=== PATIENT | male | born 1975 | race Caucasian/White ===

== ENCOUNTER → 2019-08-12 | Outpatient (CLI) | payer BC, OTHER ==
[~2019-08-12] MED LIST: EPIP0.3I IM; IBUP800T OR; LORATIDINE OR; MULTIVIT OR; SUDA30TA OR
--- NOTE | 2019-08-12 10:47 | REP ---
HIDA SCAN WITH GALLBLADDER EJECTION FRACTION: Following the intravenous administration of 6.6 millicuries technetium 99m Mebrofenin, multiple images of the right upper quadrant are performed every 5 minutes for a period of 1 hour. The gallbladder is visualized at 20 minutes post injection. There is no evidence of biliary to bowel transit by 1 hour. This may indicate a hypertonic sphincter of Oddi. At the 1-hour liz, 8 ounces of Ensure Enlive are ingested and further imaging performed for 1 hour. There is immediate biliary to bowel transit following ingestion of the Ensure. Gallbladder activity is measured. Gallbladder ejection fraction is calculated to be 42%, which is within normal limits. 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 Gallbladder ejection fraction is within normal range at 42%. A normal gallbladder ejection fraction is greater than 35%. Electronically Signed by Nando Felix MD 08/12/2019 10:51 A
== END ==
LOC: M RAD 07:19
PROVIDERS: ATTEND Nurse Practitioner Family
DX: M54.5 Low back pain (principal); K21.9 Gastro-esophageal reflux disease without esophagitis
CPT/HCPCS: 78227; A9537

== ENCOUNTER → 2019-11-03 | Outpatient (CLI) | payer BC, OTHER ==
[~2019-11-03] MED LIST changes: +E-Z-PAQUE 96% w/w SUSP 176GM BTL As Ordered ONE
--- NOTE | 2019-11-03 16:51 | REP ---
Examination Requested: SBFT Reason For Exam: Abdominal pain Small Bowel Follow Through The procedure was performed by SIM Lema, under the direct supervision of Dr. Arango. The images were reviewed with Dr. Arango. The third helper film shows no organomegaly or pathological masses. The intestinal gas pattern appears normal. The barium was administered and the barium column was followed through the small bowel to the level of the terminal ileum. Small bowel transit time was approximately 40 minutes. During fluoroscopy gentle palpation shows all loops are freely mobile and pliable. There are no fixed or angulated loops. The small bowel mucosal pattern is normal in course and caliber. There is no transition to suggest a partial small-bowel obstruction. Spot filming of the terminal ileum shows it to be unremarkable. Impression: 1. Unremarkable small bowel follow-through 0.4 minutes of fluoroscopy time was utilized for this procedure. Some fluoroscopic images are performed with last image hold technology. These images require no additional radiation. Reviewed by SIM Allen 11/03/2019 03:10 P Electronically Signed by Bubba Arango MD 11/03/2019 04:42 P
== END ==
LOC: M RAD 08:28
PROVIDERS: ATTEND Nurse Practitioner Family
DX: R10.9 Unspecified abdominal pain (principal)

== ENCOUNTER → 2020-11-23 | Outpatient (CLI) | payer BC, OTHER ==
[~2020-11-23] MED LIST changes: -E-Z-PAQUE 96% w/w SUSP 176GM BTL As Ordered ONE; +GASTROGRAFIN SOLUTION 30ML (Q9963) As Ordered ONE; +ISOVUE-370 76% 100ML VIAL As Ordered ONE
--- NOTE | 2020-11-23 15:14 | REP ---
INDICATION: RLQ PAIN. COMPARISON: None. TECHNIQUE: Scans were obtained during contrast administration. FINDINGS: The lower lungs are clear. The gallbladder is fluid filled without evidence of gallstones. The bile ducts are not dilated. The liver shows normal size and attenuation. The pancreas, spleen, aorta, adrenal glands and kidneys are unremarkable. The ureters are not dilated. The large and small bowel are unremarkable. The appendix shows normal size. There are no inflammatory changes in the abdomen or pelvis. There is no adenopathy in the abdomen or pelvis. IMPRESSION: Negative CT of the abdomen and pelvis. <Electronically signed by Kodi Flores > 11/23/20 [id number]
== END ==
LOC: M RAD 13:04
PROVIDERS: ATTEND Family Medicine
DX: R10.31 Right lower quadrant pain (principal)
CPT/HCPCS: 74177; Q9963; Q9967

== ENCOUNTER → 2022-07-04 | Outpatient (CLI) | payer BC, OTHER ==
[~2022-07-04] MED LIST changes: -GASTROGRAFIN SOLUTION 30ML (Q9963) As Ordered ONE; -ISOVUE-370 76% 100ML VIAL As Ordered ONE
== END ==
LOC: M SOG 08:02
PROVIDERS: ATTEND Physician Assistant
DX: M25.522 Pain in left elbow (principal); M65.28 Calcific tendinitis, other site